=== PATIENT | male | born 1985 | race Caucasian/White ===

== ENCOUNTER 2022-06-28 08:00 | Outpatient (RCR) | payer MEDICAID, SELFPAY | END 2022-07-03 13:40 | disposition home or self-care (01) | LOC: PT.CARL 08:00 | PROVIDERS: Visit Provider Family Medicine | DX: S83.242D Other tear of medial meniscus, current injury, left knee, subsequent encounter (principal) | CPT/HCPCS: 97010; 97014; 97110; 97163; 97530; G0283 ==

== ENCOUNTER 2024-06-15 19:53 | Emergency (ER) | payer MEDICAID, SELFPAY ==
--- NOTE | 2024-06-15 19:52 | ECG_ITS ---
APPROVED REPORT Exam: Resting ECG HR:69 bpm ECG Measurements Heart Rate 69 AXES FL 143 P 55 QRSd 94 QRS 20 QT 380 T 17 QTc 399 Conclusion SINUS RHYTHM NORMAL ECG Electronically signed by : LEILA KATE, 06/15/2024 21:20:40
[2024-06-15 19:54] VITALS: BP 153/94; PULSE 72; RESP 18; TEMP 36.6; O2SAT 100; BMI 27.3
--- NOTE | 2024-06-15 20:14 | ED_ITS ---
Discharge Plan Disposition Patient Disposition: Home, Self-Care Condition: Good Referrals Follow up/Referrals: Wayne Soares II, MD [Staff Physician] - See instructions Provider,MD Maricel [Primary Care Provider] - See instructions Matt Hampton MD [Staff Physician] - See instructions Activity Restrictions/Add. Instructions Additional Instructions/Restrictions: Follow-up with your PCP within 48 hours for further evaluation of workup. I have referred you both to cardiology and gastroenterology for further workup of your symptoms today. Your PCP will need to refer you to neurology for further evaluation of those symptoms. Return to ER for any worsening signs or symptoms as needed. Clinical Impressions Clinical Impression: Chest pain Qualifiers: Chest pain type: unspecified Qualified Code(s): R07.9 - Chest pain, unspecified Print Language Print Language: Ecuadorean Discharge ED Provider: Norman De Leon [facility] <CHALO Charles - Last Filed: 06/15/24 22:41> General Chief Complaint: Chest Pain Stated Complaint: CP Time Seen by Provider: 06/15/24 20:07 Mode of Arrival: Ambulatory Source of Information: Patient Limitations: No Limitations Description of Symptoms (Recalled from ER Triage Doc. by RN): Patient states he has chest pain that started on the right and has now moved to the middle. Started around 5:30pm. States it felt like lcy hot on his chest. Rates pain 6/10 History of Present Illness HPI narrative: Patient presents for evaluation of chest pain and altered mental status.. Patient has no significant past medical history and is on no home medications. He was cooking dinner tonight when suddenly he had a combination of symptoms including chest pain, feeling frozen, panicking, palpitations, but no nausea vomiting diarrhea headache loss of consciousness loss of bowel or bladder function no tonic-clonic movements. He was able to follow his 's instructions but was unable to communicate initially. Has never had anything like this before although he remotely has had what he thought were anxiety attacks previously long ago that lasted approximately 30 minutes but nothing like this Related Data Allergies Allergy/AdvReac Type Severity Reaction Status Date / Time amoxicillin Allergy Mild Hives Verified 06/15/24 20:23 morphine Allergy Unknown Hives Verified 06/15/24 20:23 PFSH <CHALO Charles - Last Filed: 06/15/24 22:41> [facility] Disclaimer: The information contained in this section may have been updated after the patient was seen, as this information can be updated by other users. Social History (Updated 06/15/24 @ 22:41 by CHALO Charles) Smoking Status: Current every day smoker alcohol intake: never current occupational status: employed Travel in the last 8 weeks: None <CHALO Charles - Last Filed: 06/15/24 22:41> ROS Obtained: Yes Systems reviewed as appropriate & no additional complaints except as documented Physical Exam <CHALO Charles - Last Filed: 06/15/24 22:41> General General appearance: alert and in no apparent distress Eye Eye exam: Present normal appearance, PERRL and EOMI Neck Neck exam: Present normal inspection and full ROM Respiratory Respiratory exam: Present normal lung sounds bilaterally; Absent respiratory distress, wheezes or accessory muscle use Cardiovascular Cardiovascular exam: Present regular rate, normal rhythm, normal heart sounds, +S1 and +S2 Neurological Exam Neurological exam: Present alert, oriented X3, CN II-XII intact, normal gait and reflexes normal; Absent motor sensory deficit Psychiatric Psychiatric exam: Present normal affect and normal mood HEART Score <CHALO Charles - Last Filed: 06/15/24 22:41> HEART Score HEART Score assessment performed?: Yes History (anamnesis): Slightly suspicious ECG: Normal Age: <45 years Risk factors: 1-2 risk factors Troponin: </= normal limit HEART Score: 1 <Norman De Leon MD - Last Filed: 06/15/24 22:54> HEART Score HEART Score: 1 Critical Care <CHALO Charles - Last Filed: 06/15/24 22:41> Critical Care Time Critical Care Time: No Medical Decision Making <CHALO Charles - Last Filed: 06/15/24 22:41> Medical Records Medical records reviewed: Yes I reviewed the patient's medical records. Víctor Inquiry Pt receiving controlled substance: No Vital Signs Vital Signs: 06/15/24 19:54 06/15/24 20:25 06/15/24 21:30 Temperature 97.9 F 98.1 F Temperature Source Oral Oral Pulse Rate 74 50 L Pulse Rate [Right Radial] 72 Respiratory Rate 18 14 Blood Pressure 115/72 Blood Pressure [Right Arm] 153/94 H Blood Pressure Mean [Right Arm] 113 Blood Pressure Source Automatic Cuff Blood Pressure Source [Right Arm] Automatic Cuff Blood Pressure Position Supine Blood Pressure Position [Right Arm] Supine 02 Sat by Pulse Oximetry 100 94 L Oxygen Delivery Method Room Air Room Air 06/15/24 22:00 06/15/24 22:28 Temperature 98.1 F 97.9 F Temperature Source Oral Oral Pulse Rate 60 56 L Pulse Rate [Right Radial] Respiratory Rate 16 20 Blood Pressure 111/66 111/66 Blood Pressure [Right Arm] Blood Pressure Mean [Right Arm] Blood Pressure Source Blood Pressure Source [Right Arm] Blood Pressure Position Supine Blood Pressure Position [Right Arm] 02 Sat by Pulse Oximetry 94 L Oxygen Delivery Method Room Air Room Air Lab Data Lab results reviewed: Yes I reviewed the patient's lab results. Labs: Lab Results 06/15/24 20:00: WBC 11.0 H, RBC 5.58, Hgb 16.6, Hct 50.0, MCV 89.7, MCH 29.8, MCHC 33.2, RDW 12.8, Plt Count 319, MPV 7.8, Neut % (Auto) 71.3, Lymph % (Auto) 21.8, Callahan % (Auto) 5.4, Eos % (Auto) 0.7, Baso % (Auto) 0.8, Neut # (Auto) 7.9 H, Lymph # (Auto) 2.4, Callahan # (Auto) 0.6, Eos # (Auto) 0.1, Baso # (Auto) 0.1, Sodium 137, Potassium 3.7, Chloride 103, Carbon Dioxide 25, Anion Gap 12.7, BUN 8 L, Creatinine 0.90, Estimated Creat Clear 132, Estimated GFR 94, Est GFR ( Amer) 114, Glucose 107 H, Calcium 9.7, Magnesium 1.9, Total Bilirubin 0.6, AST 30, ALT 36, Alkaline Phosphatase 63, Troponin I < 0.01, Total Protein 8.0, Albumin 4.7, Globulin 3.3 H, Albumin/Globulin Ratio 1.4, Lipase 60, TSH 1.34, Free T4 Index 3.0 L, Thyroxine (T4) 9.4, T3 Uptake 32 06/15/24 20:00 06/15/24 20:00 Response Orders (Tests/Meds): ED MEDICATIONS Discontinued Medications Generic Name Dose Route Start Last Admin Trade Name Juan PRN Reason Stop Dose Admin Acetaminophen 1,000 mg 06/15/24 20:14 06/15/24 20:20 Acetaminophen 500mg Tab PO 06/15/24 20:15 1,000 mg ONCE ONE Administration Belladonna Alkaloids 60 ml 06/15/24 20:14 06/15/24 20:19 Belladonna Alkaloids 60 Ml Ml PO 06/15/24 20:15 60 ml ONCE ONE Administration Ibuprofen 800 mg 06/15/24 20:14 06/15/24 20:20 Ibuprofen 400 Mg Tablet PO 06/15/24 20:15 800 mg ONCE ONE Administration ORDERS Category Date Time Status CT head/brain wo con Stat Cat Scan 06/15/24 20:15 Completed Chest XR 2 view (NOT portable) [XR chest 2V] Stat Exams 06/15/24 20:16 Completed CBC w/Auto Diff [Complete Blood Count Auto Diff] Stat Lab 06/15/24 20:00 Completed CMP [Comprehensive Metabolic Panel] Stat Lab 06/15/24 20:00 Completed Lipase Stat Lab 06/15/24 20:00 Completed Magnesium Stat Lab 06/15/24 20:00 Completed Thyroid Panel Stat Lab 06/15/24 20:00 Completed Trop I [Troponin I] Stat Lab 06/15/24 20:00 Completed MDM Narrative Medical Decision Narrative: In summary patient is a 39-year-old male who presents to the emergency department for evaluation of chest pain and altered mental status. Patient is hemodynamically stable upon arrival, afebrile. Physical exam is unremarkable and nonfocal including Torrie Coma Score 15, cranial nerves II through XII are intact grossly to exam, NIH stroke score is 0, no reproducible chest pain on exam, normal breath sounds normal heart sounds normal sinus rhythm on the EKG on the bedside monitor. Differential diagnosis includes palpitations versus esophageal spasm versus panic attack versus central neurologic cause like seizure or stroke etc. Initial workup will be conducted with hematologic labs twelve-lead EKG CT scan of the head without contrast. Initial interventions include Tylenol ibuprofen GI cocktail. Initial workup reviewed by me shows that his hematologic labs are nonactionable, he has a normal sinus EKG, his troponin is undetectable, and my informed interpretation of his imaging shows no acute processes.. Upon repeat evaluation patient had complete resolution of his symptoms after initial intervention. Given this patient is appropriate for discharge with referral to cardiology for further testing, referral to gastroenterology for further testing, referral back to his PCP within 48 hours for recheck and for possible referral to neurology. <Norman De Leon MD - Last Filed: 06/15/24 22:54> Vital Signs Vital Signs: 06/15/24 19:54 06/15/24 20:25 06/15/24 21:30 Temperature 97.9 F 98.1 F Temperature Source Oral Oral Pulse Rate 74 50 L Pulse Rate [Right Radial] 72 Respiratory Rate 18 14 Blood Pressure 115/72 Blood Pressure [Right Arm] 153/94 H Blood Pressure Mean [Right Arm] 113 Blood Pressure Source Automatic Cuff Blood Pressure Source [Right Arm] Automatic Cuff Blood Pressure Position Supine Blood Pressure Position [Right Arm] Supine 02 Sat by Pulse Oximetry 100 94 L Oxygen Delivery Method Room Air Room Air 06/15/24 22:00 06/15/24 22:28 Temperature 98.1 F 97.9 F Temperature Source Oral Oral Pulse Rate 60 56 L Pulse Rate [Right Radial] Respiratory Rate 16 20 Blood Pressure 111/66 111/66 Blood Pressure [Right Arm] Blood Pressure Mean [Right Arm] Blood Pressure Source Blood Pressure Source [Right Arm] Blood Pressure Position Supine Blood Pressure Position [Right Arm] 02 Sat by Pulse Oximetry 94 L Oxygen Delivery Method Room Air Room Air Lab Data Labs: Lab Results 06/15/24 20:00: WBC 11.0 H, RBC 5.58, Hgb 16.6, Hct 50.0, MCV 89.7, MCH 29.8, MCHC 33.2, RDW 12.8, Plt Count 319, MPV 7.8, Neut % (Auto) 71.3, Lymph % (Auto) 21.8, Callahan % (Auto) 5.4, Eos % (Auto) 0.7, Baso % (Auto) 0.8, Neut # (Auto) 7.9 H, Lymph # (Auto) 2.4, Callahan # (Auto) 0.6, Eos # (Auto) 0.1, Baso # (Auto) 0.1, Sodium 137, Potassium 3.7, Chloride 103, Carbon Dioxide 25, Anion Gap 12.7, BUN 8 L, Creatinine 0.90, Estimated Creat Clear 132, Estimated GFR 94, Est GFR ( Amer) 114, Glucose 107 H, Calcium 9.7, Magnesium 1.9, Total Bilirubin 0.6, AST 30, ALT 36, Alkaline Phosphatase 63, Troponin I < 0.01, Total Protein 8.0, Albumin 4.7, Globulin 3.3 H, Albumin/Globulin Ratio 1.4, Lipase 60, TSH 1.34, Free T4 Index 3.0 L, Thyroxine (T4) 9.4, T3 Uptake 32 Response Orders (Tests/Meds): ED MEDICATIONS Discontinued Medications Generic Name Dose Route Start Last Admin Trade Name Juan PRN Reason Stop Dose Admin Acetaminophen 1,000 mg 06/15/24 20:14 06/15/24 20:20 Acetaminophen 500mg Tab PO 06/15/24 20:15 1,000 mg ONCE ONE Administration Belladonna Alkaloids 60 ml 06/15/24 20:14 06/15/24 20:19 Belladonna Alkaloids 60 Ml Ml PO 06/15/24 20:15 60 ml ONCE ONE Administration Ibuprofen 800 mg 06/15/24 20:14 06/15/24 20:20 Ibuprofen 400 Mg Tablet PO 06/15/24 20:15 800 mg ONCE ONE Administration ORDERS Category Date Time Status CT head/brain wo con Stat Cat Scan 06/15/24 20:15 Completed Chest XR 2 view (NOT portable) [XR chest 2V] Stat Exams 06/15/24 20:16 Completed CBC w/Auto Diff [Complete Blood Count Auto Diff] Stat Lab 06/15/24 20:00 Completed CMP [Comprehensive Metabolic Panel] Stat Lab 06/15/24 20:00 Completed Lipase Stat Lab 06/15/24 20:00 Completed Magnesium Stat Lab 06/15/24 20:00 Completed Thyroid Panel Stat Lab 06/15/24 20:00 Completed Trop I [Troponin I] Stat Lab 06/15/24 20:00 Completed MDM Narrative Medical Decision Narrative: In summary patient is a 39-year-old male who presents to the emergency department for evaluation of chest pain and altered mental status. Patient is hemodynamically stable upon arrival, afebrile. Physical exam is unremarkable and nonfocal including Torrie Coma Score 15, cranial nerves II through XII are intact grossly to exam, NIH stroke score is 0, no reproducible chest pain on exam, normal breath sounds normal heart sounds normal sinus rhythm on the EKG on the bedside monitor. Differential diagnosis includes palpitations versus esophageal spasm versus panic attack versus central neurologic cause like seizure or stroke etc. Initial workup will be conducted with hematologic labs twelve-lead EKG CT scan of the head without contrast. Initial interventions include Tylenol ibuprofen GI cocktail. Initial workup reviewed by me shows that his hematologic labs are nonactionable, he has a normal sinus EKG, his troponin is undetectable, and my informed interpretation of his imaging shows no acute processes.. Upon repeat evaluation patient had complete resolution of his symptoms after initial intervention. Given this patient is appropriate for discharge with referral to cardiology for further testing, referral to gastroenterology for further testing, referral back to his PCP within 48 hours for recheck and for possible referral to neurology. I was consulted by the ZOË, and we discussed the complexity of the problems being addressed. I approved the treatment and management plan for this patient's care in the Emergency Department, thus performing a substantive portion of the medical decision making. Norman De Leon MD
--- NOTE | 2024-06-15 20:15 | CT_ITS ---
PROCEDURE INFORMATION: Exam: CT Head Without Contrast Exam date and time: 06/15/2024 8:32 PM Age: 39 years old Clinical indication: Altered mental status/memory loss TECHNIQUE: Imaging protocol: Computed tomography of the head without contrast. Radiation optimization: All CT scans at this facility use at least one of these dose optimization techniques: automated exposure control; mA and/or kV adjustment per patient size (includes targeted exams where dose is matched to clinical indication); or iterative reconstruction. COMPARISON: No relevant prior studies available. FINDINGS: Brain: No hemorrhage. Unremarkable white matter. No mass effect. Cerebral ventricles: No ventriculomegaly. Paranasal sinuses: Visualized sinuses are unremarkable. No fluid levels. Mastoid air cells: Visualized mastoid air cells are well aerated. Bones: Unremarkable. No acute fracture. Soft tissues: Unremarkable. IMPRESSION: No acute intracranial abnormality.
--- NOTE | 2024-06-15 20:16 | XR_ITS ---
PROCEDURE INFORMATION: Exam: XR Chest Exam date and time: 06/15/2024 8:15 PM Age: 39 years old Clinical indication: Pain; Chest pressure; Additional info: Chest pain TECHNIQUE: Imaging protocol: Radiologic exam of the chest. Views: 2 views. COMPARISON: No relevant prior studies available. FINDINGS: Lungs: Unremarkable. No consolidation. Pleural spaces: Unremarkable. No pleural effusion. No pneumothorax. Heart/Mediastinum: Unremarkable. No cardiomegaly. Bones/joints: Unremarkable. IMPRESSION: No acute findings.
[2024-06-15] MEDS: BELLADONNA ALKALOIDS 60 ML ML PO (20:19)
[2024-06-15] MEDS: IBUPROFEN 400 MG TABLET 800 MG PO (20:20)
[2024-06-15] MEDS: ACETAMINOPHEN 500MG TAB 1000 MG PO (20:20)
[2024-06-15 20:25] VITALS: PULSE 74
[2024-06-15 20:46] LABS: Basophils # 0.1 K/mm3 (0-0.2); Basophils % 0.8 % (0.1-2.0); Eosinophils # 0.1 K/mm3 (0.0-0.4); Eosinophils % 0.7 % (0.1-12.0); Hemoglobin 16.6 g/dL (14.1-18.0); Lymphocytes # 2.4 K/mm3 (0.7-4.5); Lymphocytes % 21.8 % (10-50); Mean Corpuscular HGB Conc 33.2 g/dL (31.8-35.4); Mean Corpuscular Hemoglobin 29.8 pg (27.0-31.2); Mean Corpuscular Volume 89.7 fl (80-94); Mean Platelet Volume 7.8 fl (7.4-10.4); Monocytes # 0.6 K/mm3 (0.1-1.0); Monocytes % 5.4 % (1.7-9.3); Neutrophils # 7.9 K/mm3 (1.8-7.8); Neutrophils % 71.3 % (37.0-80.0); Platelet Count 319 K/mm3 (142-424); Red Blood Count 5.58 M/mm3 (4.60-6.20); Red Cell Distribution Width 12.8 % (11.5-17.5)
[2024-06-15 20:48] LABS: Albumin Level 4.7 g/dl (3.5-5.0); Chloride 103 mmol/L (98-107)
[2024-06-15 20:49] LABS: Potassium 3.7 mmoL/L (3.5-5.1); Sodium 137 mmol/L (136-145)
[2024-06-15 20:51] LABS: Alanine Aminotransferase 36 U/L (12-78); Aspartate Amino Transferase 30 U/L (17-59); Blood Urea Nitrogen 8 mg/dl (9-20); Creatinine Clearance Estimated 132 mL/min (50-200); Estimated Glomerular Filt Rate 94 ml/min (>60); GFR (African American) 114 ML/MIN (>60)
[2024-06-15 20:52] LABS: Albumin/Globulin Ratio 1.4 (1.1-1.8); Alkaline Phosphatase 63 U/L (38-126); Anion Gap 12.7 mEq/L (5-15); Bilirubin,Total 0.6 mg/dl (0.2-1.3); Calcium 9.7 mg/dl (8.4-10.2); Carbon Dioxide 25 mmol/L (22.0-30.0); Globulin 3.3 g/dL (1.3-3.2); Glucose 107 mg/dl (74-100); Lipase 60 U/L (23-300); Magnesium 1.9 mg/dl (1.6-2.3)
[2024-06-15 21:09] LABS: T4 (Thyroxine) 9.4 ug/dl (5.53-11.0); Triiodothryronine (T3) Uptake 32 % (23.5-40.5)
[2024-06-15 21:23] LABS: Thyroid Stimulating Hormone 1.34 uIU/mL (0.465-4.68)
[2024-06-15 21:30] VITALS: BP 115/72; PULSE 50; RESP 14; TEMP 36.7; O2SAT 94
[2024-06-15 22:00] VITALS: BP 111/66; PULSE 60; RESP 16; TEMP 36.7; O2SAT 94
[2024-06-15 22:08] LABS: Troponin I < 0.01 ng/ml (0.00-0.034)
[2024-06-15 22:28] VITALS: BP 111/66; PULSE 56; RESP 20; TEMP 36.6; O2SAT 99
== END 2024-06-15 22:29 | disposition home or self-care (01) ==
PROVIDERS: Physician Assistant; Emergency Provider Emergency Medicine
DX: R07.9 Chest pain, unspecified (principal); R41.82 Altered mental status, unspecified; R00.2 Palpitations; F41.0 Panic disorder [episodic paroxysmal anxiety]
CPT/HCPCS: 70450; 71046; 80053; 83690; 83735; 84436; 84443; 84479; 84484; 85025; 93005; 99285

== ENCOUNTER 2024-07-03 15:06 | Outpatient (CLI) | payer MEDICAID, SELFPAY ==
[2024-07-03 15:48] LABS: D-Dimer < 0.25 ug/mL (0.0-0.5)
[2024-07-03 16:04] LABS: Calcium 9.1 mg/dl (8.4-10.2)
[2024-07-03 16:16] LABS: Intact Parathyroid Hormone 46.8 pg/mL (7.5-53.5)
== END 2024-07-03 23:59 | disposition home or self-care (01) ==
LOC: LAB 15:07
PROVIDERS: PCP Nurse Practitioner Family; Visit Provider Internal Medicine
DX: R00.2 Palpitations (principal); R55 Syncope and collapse; R07.9 Chest pain, unspecified; R03.0 Elevated blood-pressure reading, without diagnosis of hypertension
CPT/HCPCS: 36415; 82310; 83970; 85378; 93270

== ENCOUNTER 2024-07-22 14:33 | Outpatient (CLI) | payer MEDICAID, SELFPAY ==
--- NOTE | 2024-07-22 14:37 | CA_ITS ---
APPROVED REPORT EXAM: Comprehensive 2D, Doppler, and color-flow Echocardiogram Leno Sewer: Vicki Adams, RCS, RVS Ht: 5 ft 9 in Wt: 209lbs BSA: 2.10 BP: 146/87 mmHg Indications: Smoker, Near syncope, CP, Palpitations Echo Enhancing Agent Indication: Rule out Shunt Agent(s) / Amount(s) Used: Agitated Saline 20 cc Comments: No evidence of atrial shunt 2D Dimensions LA Volume 63.30 mL LA Volume Index 30.00 mL/m2 (M/F) 16-34 M-Mode Dimensions RVDd 3.34 cm (0.9-2.6) LA Diam 3.70 cm (1.9-4.0) LVDd 5.05 cm (3.5-5.7) LVDs 3.19 cm (3.5-5.7) IVSd 0.91 cm (0.6-1.1) PWd 1.06 cm (0.6-1.1) EF (Teich) 65.30% EPSs 0.69 cm FS 35.90% EDV (Teich) 117.10 mL TAPSE 2.95 (<1.7) ESV (Teich) 40.60 mL LV Diastology E Decel Time 200 (160-240 msec) E/A Ratio 1.77 MED A' 11.50 cm/s LAT A' 11.40 cm/s Aortic Valve AoV Peak Gary. 155.0 (50-130 cm/s) AO Peak GR. 9.60 mmHg AO Mean GR. 4.90 (<5 mmHg) AO VTI 30.1 (18-25 cm) Mitral Valve MV A Velocity 35.0 (40-130 cm/s) E/A Ratio 1.77 Pulmonary Valve PV Peak Velocity 95.0 (50-150 cm/s) Tricuspid Valve TR P. Velocity 175.00 cm/s RAP Estimate 10.00 mmHg RVSP 22.30 mmHg Left Ventricle The left ventricle is normal size. The left ventricular systolic function is normal. The left ventricular ejection fraction is within the normal range. There is normal left ventricular wall thickness. There is normal LV segmental wall motion. The left ventricular diastolic function is normal. LVEF is 55%. Right Ventricle The right ventricle is mildly dilated. The right ventricular systolic function is normal. Atria The left atrium size is normal. The right atrium size is normal. There is no Doppler evidence of interatrial shunt. Administration of agitated saline at rest and with Valsalva demonstrates no evidence of interatrial shunt. Aortic Valve The aortic valve opens well. The aortic valve is trileaflet. There is no aortic valvular stenosis. No aortic regurgitation is present. Mitral Valve The mitral valve is normal in structure. No evidence of mitral valve stenosis. There is no mitral valve regurgitation noted. Tricuspid Valve The tricuspid valve leaflets are thin and pliable. Trace tricuspid regurgitation. There is insufficient TR jet to estimate RVSP. Trace pulmonic regurgitation. Pulmonic Valve The pulmonary valve is normal in structure. Great Vessels The aortic root is normal in size. The ascending aorta is normal in size. IVC is normal in size and collapses >50% with inspiration. Pericardium There is no pericardial effusion. Other Information Study Quality: Fair Conclusion Normal biventricular systolic function. Mild RV dilation. There is no Doppler evidence of interatrial shunt. Administration of agitated saline at rest and with Valsalva demonstrates no evidence of interatrial shunt. Electronically signed by : Ilene Hampton MD 08/02/2024 23:58:43
== END 2024-07-22 23:59 | disposition home or self-care (01) ==
LOC: RT 14:34
PROVIDERS: PCP Nurse Practitioner Family; Visit Provider Internal Medicine
DX: I51.7 Cardiomegaly (principal); R00.2 Palpitations; R55 Syncope and collapse; R07.9 Chest pain, unspecified; R03.0 Elevated blood-pressure reading, without diagnosis of hypertension
CPT/HCPCS: 93306